=== PATIENT | female | born 1990 | race African-American/Black ===

== ENCOUNTER 2019-08-22 08:27 | Emergency (ER) | payer OTHER, MEDICAID, SELFPAY ==
--- NOTE | ~2019-08-22 | XR_ITS ---
EXAMINATION: XR knee RT 3V DATE: 08/22/2019 09:15 INDICATION: Right knee pain post fall TECHNIQUE: Anteroposterior, oblique and crosstable lateral views of the right knee were obtained COMPARISON: None. FINDINGS: Alignment is normal. No fracture. No joint effusion/layering lipohemarthrosis. Soft tissues are unre markable. IMPRESSION: 1. Normal right knee radiograph. Reviewed, dictated and finalized at location A. 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
--- NOTE | ~2019-08-22 | XR_ITS ---
EXAMINATION: XR knee LT 3V DATE: 08/22/2019 09:14 INDICATION: Medial left knee pain post trampoline injury TECHNIQUE: Anteroposterior, oblique and crosstable lateral views of the left knee were obtained COMPARISON: None. FINDINGS: Alignment is normal. No fracture. No joint effusion/layering lipohemarthrosis. Soft tissues are unre markable. IMPRESSION: 1. Normal left knee radiographs. Reviewed, dictated and finalized at location A. 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
[2019-08-22 08:34] VITALS: BP 111/64; PULSE 85; RESP 16; TEMP 36.9; O2SAT 99
--- NOTE | 2019-08-22 09:24 | ED.LOWEXIN ---
HPI - Extremity Injury (Lower) General Chief Complaint: Extremity Injury, Lower Stated Complaint: bilateral knee pain after fall Time Seen by Provider: 08/22/19 08:58 Source: patient Mode of arrival: ambulatory Limitations: no limitations History of Present Illness HPI Narrative: Patient is a 29-year-old female who presents to emergency department for evaluation of bilateral anterior knee pain [place] [employer] [place] notes that she developed the pain after jumping feeling a pop in the bilateral knees and has since had moderate aching pain patient on arrival is in the room in no distress patient is able to ambulate patient Related Data Home Medications Medication Instructions Recorded Confirmed No Home Medications 08/22/19 08/22/19 Allergies Allergy/AdvReac Type Severity Reaction Status Date / Time No Known Allergies Allergy Unknown Unverified 08/22/19 08:41 Review of Systems Review of Systems: Narrative: CONSTITUTIONAL: Denies fever, chills, or sweats. SKIN: Negative for bruising or swelling MUSCULOSKELETAL: Positive for bilateral knee pain NEUROLOGIC: Denies numbness, or weakness. [facility] Social History Social History (Updated 08/22/19 @ 09:25 by Brooks Toussaint PA-C) Smoking status: Never smoker Gender identity (if verbalized by the patient): Female Exam Narrative: Exam Narrative: GENERAL: Well-appearing, well-nourished, and in no acute distress. HEAD: Normocephalic, atraumatic. EYES: PERRLA and EOMI. ENT: Nares clear, no rhinorrhea or epistaxis. Mucous membranes moist. EXTREMITIES: Normal range of motion. No edema. Tenderness to the bilateral anterior knees no deformities noted SKIN: Warm, dry, no rash. NEURO: No focal deficits. Alert and oriented x3. Neurovascularly intact. Capillary refill less than 2 seconds. PSYCH: Normal mood and affect. Course Course Emergency Course: Patient in the room in no distress aware of case findings treatment plan and diagnosis agreeing to follow-up as directed Vital Signs Vital signs: Vital Signs Temperature 98.4 F 08/22/19 08:34 Pulse Rate 85 08/22/19 08:34 Respiratory Rate 16 08/22/19 08:34 Blood Pressure 111/64 08/22/19 08:34 Pulse Oximetry 99 08/22/19 08:34 Temperature 98.4 F 08/22/19 08:34 Pulse Rate 85 08/22/19 08:34 Respiratory Rate 16 08/22/19 08:34 Blood Pressure 111/64 08/22/19 08:34 Pulse Oximetry 99 08/22/19 08:34 MDM - Extremity Injury (Lower) MDM Narrative Medical decision making narrative: Patients injury or pain is consistent with musculoskeletal etiology. No signs of neurological or vascular compromise on exam. Compartments and tisues are soft without signs of compartment syndrome. Pain is felt appropriate for further evaluation on an outpatient basis. Imaging Data Radiologist's impression: ITS Impressions Knee X-Ray 08/22/19 09:17 IMPRESSION: 1. Normal right knee radiograph. Discharge Plan Discharge Clinical Impression: Acute bilateral knee pain Patient Disposition: Home, Self-Care Condition: Stable Instructions: Antibiotic Form, Arthralgia (ED) Additional Instructions: Limited weight on the affected leg until able to bear weight without pain. Ice and elevate extremity. Pain medication as needed and directed. Follow up with your doctor for further care in the next 7 days. Return if symptoms worsen or concerns Prescriptions: No Action No Home Medications RF: 0 Follow-up/Referrals: PHYSICIAN,GREEN HIDE INSPECTOR [Primary Care Provider] - Ramírez Beckwith MD [Physician] - Stand Alone Forms: Work/School Release IP
== END 2019-08-22 09:43 | disposition home or self-care (01) ==
PROVIDERS: Emergency Provider Emergency Medicine
DX: M25.562 Pain in left knee (principal); M25.561 Pain in right knee
CPT/HCPCS: 73562; 99284

== ENCOUNTER 2020-05-17 11:36 | Emergency (ER) | payer OTHER, SELFPAY ==
[2020-05-17 11:47] VITALS: BP 116/66; PULSE 97; RESP 18; TEMP 37.4; O2SAT 100
--- NOTE | 2020-05-17 11:47 | PC.NURSE ---
in br to obtain ua spec.
--- NOTE | 2020-05-17 12:20 | ED.GENADULT ---
HPI - General Adult General Chief complaint: Urogenital-Female Stated complaint: Vaginal Discomfort Time Seen by Provider: 05/17/20 12:20 Source: patient and RN notes reviewed Mode of arrival: ambulatory Limitations: no limitations History of Present Illness HPI narrative: 30-year-old -[place]er female presents with vaginal irritation with white discharge for 1 day. Erin says discharge is similar to prior yeast infection. No treatment. No significant pelvic pain. No dysuria. Denies fever or chills. No concerns for STDs. No new partners. Sexually active with same partner for the past 8 years. Does not douche. No exacerbating factors. Denies hematuria or vaginal bleeding. Denies being , LMP 04/25/20.? No flank pain. Denies nausea, vomiting, and abdominal pain.? Tolerating liquids well.? Remains active. The patient reports she have not been diagnosed with COVID-19. The patient reports she is not waiting for the results of a COVID-19 lab test. The patient reports she do not have weakness or fatigue. The patient reports she do not have a new or worsening cough or shortness of breath. Denies chest pain. The patient reports she do not have any rhinorrhea, congestion, sore throat, loss of taste, and diarrhea. Denies recent traveling. Denies concerns for COVID-19 or exposures been home with limited outdoor exposure except for essential household needs, work, and return home. At this time, patient is not suspected of having COVID-19. Some parts of this dictation were generated by voice recognition software and may contain typographical and/or grammatical inaccuracies. Related Data Allergies Allergy/AdvReac Type Severity Reaction Status Date / Time No Known Allergies Allergy Unknown Unverified 08/22/19 08:41 Review of Systems Review of Systems: Narrative: CONSTITUTIONAL: Denies fever, chills, sweats. EYES: Denies visual changes, redness, discharge. ENT: Denies rhinorrhea, congestion, sore throat, otalgia. CARDIOVASCULAR: Denies chest pain, palpitations, edema. RESPIRATORY: Denies dyspnea, wheezing, cough. GASTROINTESTINAL: Denies abdominal pain, nausea, vomiting, diarrhea. GENITOURINARY: Denies hematuria, dysuria (burning, frequent, urgency). Complains of vaginal irritation, abnormal discharge. SKIN: Denies rash or itching. MUSCULOSKELETAL: Denies acute back pain, joint pain, or myalgia. NEUROLOGIC: Denies numbness or focal weakness. PSYCHIATRIC: Denies anxiety or depression. All systems reviewed & are unremarkable except as noted in HPI and below. [facility] Past Medical History Medical History (Updated 05/18/20 @ 00:00 by Angelica Damagdi) No significant family history Surgical History Surgical History (Updated 05/17/20 @ 12:31 by SHAWANDA Vang) History of dilation and curettage 2014 Family History Family History (Updated 05/17/20 @ 12:32 by SHAWANDA Vang) Father Diabetes mellitus Mother Asthma Hypertension Social History Social History (Updated 05/17/20 @ 12:34 by SHAWANDA Vang) Smoking status: Never smoker Tobacco type: cigarettes Second hand tobacco smoke exposure: No Alcohol intake: never Substance use: never Living arrangements: with family Occupation/Education: occupation Gender identity (if verbalized by the patient): Female Sexual Orientation (if Verbalized by the Patient): Straight or Heterosexual Comments At time of signature, agree with nurse past medical, surgical, social, and family history.? There is no relevant family history pertinent to the presenting complaint. Exam Narrative: Exam Narrative: GENERAL: This is a well-nourished, well-developed patient, in no apparent distress.? Talks in full sentences and ambulates with steady gait without dyspnea. HEAD: normocephalic, atraumatic. EYES: PERRL. Sclera clear/white. Vision is grossly intact. CARDIOVASCULAR: Regular rate and rhythm without murmurs, gallops, or rubs. RESPIRATORY
--- NOTE | 2020-05-17 12:57 | PC.NURSE ---
1235 upon initial attempt to dc, rx was not in with chart, body recall instructor informed of need for med. to be escribed.
== END 2020-05-17 12:41 | disposition home or self-care (01) ==
PROVIDERS: Emergency Provider Nurse Practitioner Family
DX: N76.0 Acute vaginitis (principal)
CPT/HCPCS: 81003; 87086; 87088; 99213; G0463

== ENCOUNTER 2020-06-25 17:17 | Emergency (ER) | payer OTHER, SELFPAY ==
--- NOTE | 2020-06-25 17:22 | ED.FEMALEGU ---
HPI - Female Genitourinary General Chief complaint: Urogenital-Female Stated complaint: Vaginal odor/discomfort Time Seen by Provider: 06/25/20 17:30 Source: patient and RN notes reviewed Mode of arrival: ambulatory Limitations: no limitations History of Present Illness HPI Narrative: 30-year-old female presents with concern for foul-smelling vaginal discharge for 1 week. Reports symptoms started 7 days ago with foul-smelling discharge, the patient then started her menstrual cycle, and the discharge was present after her menstrual cycle as well. She denies any concern for STIs, no new sex partners. She reports urine frequency, urgency. Denies dysuria, abdominal pain, vomiting dyspareunia. MD elicited complaint: vaginal discharge Related Data Home Medications Medication Instructions Recorded Confirmed No Home Medications 06/25/20 06/25/20 Allergies Allergy/AdvReac Type Severity Reaction Status Date / Time No Known Allergies Allergy Unknown Verified 06/25/20 17:21 Review of Systems Review of Systems: Narrative: CONSTITUTIONAL: Denies malaise, chills, sweats, or fever. GASTROINTESTINAL: Denies abdominal pain, nausea, vomiting, diarrhea, bloody, or mucous stools. GENITOURINARY: Denies dysuria or hematuria. Reports urine frequency, urgency, foul-smelling copious vaginal discharge MUSCULOSKELETAL: Denies myalgia. All systems reviewed & are unremarkable except as noted in HPI and below PMFSH Past Medical History Medical History (Updated 06/25/20 @ 17:41 by Yina Nicole NP) No significant family history Surgical History Surgical History (Updated 05/17/20 @ 12:31 by SHAWANDA Vang) History of dilation and curettage 2014 Family History Family History (Updated 05/17/20 @ 12:32 by SHAWANDA Vang) Father Diabetes mellitus Mother Asthma Hypertension Social History Social History (Updated 05/17/20 @ 12:34 by SHAWANDA Vang) Smoking status: Never smoker Tobacco type: cigarettes Second hand tobacco smoke exposure: No Alcohol intake: never Substance use: never Gender identity (if verbalized by the patient): Female Comments At time of signature, agree with nursing past medical, surgical, social and family history. There is no relevant family history pertinent to the presenting complaint Exam Narrative: Exam Narrative: GENERAL: Well-appearing, well-nourished, and in no acute distress. HEAD: Normocephalic. EYES: PERRLA, conjunctivae clear. NECK: Supple. No lymphadenopathy CHEST: Clear to auscultation. No respiratory distress. HEART: Regular rate and rhythm. SKIN: Warm, dry, no rash. NEURO: Alert and oriented x3. PSYCH: Normal mood and affect : Speculum Exam - Vagina: normal appearance of the vagina and abnormal vaginal discharge (Foul-smelling, [place] in color) Speculum Exam - Cervix: normal appearance of the cervix Course Course Emergency Course: Patient is aware of diagnosis, understands and agrees to treatment plan. Anticipatory guidance given. Patient agrees to follow-up as directed and is aware of reasons to seek care at the emergency department. Portions of this record may have been created with voice recognition software Vital Signs Vital signs: Vital Signs Temperature 99.3 F 06/25/20 17:28 Pulse Rate 86 06/25/20 17:28 Respiratory Rate 16 06/25/20 17:28 Blood Pressure 113/67 06/25/20 17:28 Pulse Oximetry 100 06/25/20 17:28 Temperature 99.3 F 06/25/20 17:28 Pulse Rate 86 06/25/20 17:28 Respiratory Rate 16 06/25/20 17:28 Blood Pressure 113/67 06/25/20 17:28 Pulse Oximetry 100 06/25/20 17:28 Reviewed. MDM - Female Genitourinary MDM Narrative Medical decision making narrative: Exam findings show no acute concerns or changes; patient is non-toxic appearing and is in no distress. Patient is appropriate for outpatient treatment and follow-up. Differential Diagnosis Differential diagnosis: Likely bacterial
[2020-06-25 17:28] VITALS: BP 113/67; PULSE 86; RESP 16; TEMP 37.4; O2SAT 100
== END 2020-06-25 17:50 | disposition home or self-care (01) ==
PROVIDERS: Emergency Provider Nurse Practitioner
DX: N89.8 Other specified noninflammatory disorders of vagina (principal)
CPT/HCPCS: 81003; 99213; 99214; G0463

== ENCOUNTER 2020-11-29 09:33 | Emergency (ER) | payer OTHER, SELFPAY ==
--- NOTE | 2020-11-29 09:40 | ED.GENADULT ---
HPI - General Adult General Chief complaint: Upper Respiratory Infection Stated complaint: Cough,Runny Nose Source: patient Mode of arrival: ambulatory Limitations: no limitations History of Present Illness HPI narrative: 30 y/o AA female. PMH includes: Negative. Presents to [facility] clinic today with CC of nasal congestion, cough, and intermittent dyspnea. Manifestations have been present for the past 1 week. No fever. No FABIAN, sore throat, otalgia. No chest pain, palpitations, edema. No N/V/D. Client denies ill contacts. Non-smoker. She reports subtherapeutic relief with OTC remedies. No additional acute c/o illness relayed upon exam. Related Data Allergies Allergy/AdvReac Type Severity Reaction Status Date / Time No Known Allergies Allergy Unknown Verified 11/29/20 09:36 Review of Systems Review of Systems: Narrative: CONSTITUTIONAL: Denies fever, chills, sweats. EYES: Denies visual changes, redness, discharge. ENT: Positive congestion. No sore throat, otalgia. CARDIOVASCULAR: Denies chest pain, palpitations, edema. RESPIRATORY: Positive cough, intermittent dyspnea. No wheezing. GASTROINTESTINAL: Denies abdominal pain, nausea, vomiting, diarrhea. GENITOURINARY: Denies dysuria, hematuria, abnormal discharge SKIN: Denies rash or itching. MUSCULOSKELETAL: Denies acute back pain, joint pain, or myalgia. NEUROLOGIC: Denies numbness, or focal weakness. PSYCHIATRIC: Denies anxiety or depression. All systems reviewed & are unremarkable except as noted in HPI and below PMFSH Past Medical History Medical History No significant family history Surgical History Surgical History History of dilation and curettage 2014 Family History Family History Father Diabetes mellitus Mother Asthma Hypertension Social History Social History Smoking status: Never smoker Tobacco type: cigarettes Second hand tobacco smoke exposure: No Alcohol intake: never Substance use: never Gender identity (if verbalized by the patient): Female Exam Narrative: Exam Narrative: GENERAL: This is a well-nourished, well-developed patient, in no apparent distress. HEAD: normocephalic, atraumatic. EYES: PERRL. Sclera clear/white. Vision is grossly intact. EARS: External ears normal, auditory canals clear and without drainage, TMs normal without perforation. Hearing grossly intact. NOSE: Positive rhinorrhea. THROAT: Mucous membranes moist, posterior pharynx erythematous, without exudative changes. NECK: Neck supple, non-tender without lymphadenopathy, masses or thyromegaly. CARDIOVASCULAR: Regular rate and rhythm without murmurs, gallops, or rubs. RESPIRATORY: Clear to auscultation. Breath sounds equal bilaterally. No wheezes, rales, or rhonchi. GASTROINTESTINAL: Abdomen soft, non-tender, nondistended. Bowel sounds are active. No hepato-splenomegaly, or palpable masses. No guarding. SKIN: warm, intact with no suspicious lesions or rash, good texture and turgor. NEURO: awake, alert, and oriented to person, place and time. There were no obvious focal neurologic abnormalities. Steady gait EXTREMITIES: Normal range of motion. No edema. No calf tenderness. BACK: Nontender without deformity or crepitance. No flank tenderness. Course Vital Signs Vital signs: Vital Signs Temperature 36.3 C L 11/29/20 09:41 Pulse Rate 83 11/29/20 09:41 Respiratory Rate 16 11/29/20 09:41 Blood Pressure 103/57 L 11/29/20 09:41 Pulse Oximetry 100 11/29/20 09:41 Temperature 36.3 C L 11/29/20 09:41 Pulse Rate 83 11/29/20 09:41 Respiratory Rate 16 11/29/20 09:41 Blood Pressure 103/57 L 11/29/20 09:41 Pulse Oximetry 100 11/29/20 09:41 Medical Decision Making Differential Diagnosis Differential Diagnosis:
[2020-11-29 09:41] VITALS: BP 103/57; PULSE 83; RESP 16; TEMP 36.3; O2SAT 100
== END 2020-11-29 10:02 | disposition home or self-care (01) ==
PROVIDERS: Emergency Provider Nurse Practitioner Adult Health
DX: J01.00 Acute maxillary sinusitis, unspecified (principal)
CPT/HCPCS: 99213; G0463

== ENCOUNTER 2021-01-18 16:59 | Emergency (ER) | payer OTHER, SELFPAY ==
[2021-01-18 17:07] VITALS: BP 105/64; PULSE 88; RESP 16; TEMP 36.9; O2SAT 99
--- NOTE | 2021-01-18 17:17 | ED.GENADULT ---
HPI - General Adult General Chief complaint: Ear Stated complaint: ear ache /headache Time Seen by Provider: 01/18/21 17:17 Source: patient and RN notes reviewed Mode of arrival: ambulatory Limitations: no limitations History of Present Illness HPI narrative: 30-year-old -[place] female presents with complaints of right otalgia, upper respiratory infection symptoms, sore throat, and intermittent headache (not the worst of her life) for the past 2 days. Erin reports increasing RT otalgia and tinnitus over the past 24 hours. No treatment. Denies ear drainage or decreased hearing. Denies injury to ear. No facial swelling. Rhinorrhea and nasal congestion. Denies coughing. No high fevers or chills. Denies nausea, vomiting, and dizziness. LMP 01/06/2021. Remains active. The patient reports she has not been diagnosed with COVID-19. The patient reports she received 2 compropago COVID-19 vaccines. The patient reports she is not waiting for the results of a COVID-19 lab test. The patient reports she does not have weakness, fatigue, myalgia. The patient reports she does not have a new or worsening cough or shortness of breath. The patient reports she does not have any rhinorrhea, congestion, loss of taste, sore throat, and diarrhea. Denies recent traveling. Denies concerns for COVID-19 or exposures. At this time, the patient is not suspected of having COVID-19. Some parts of this dictation were generated by voice recognition software and may contain typographical and/or grammatical inaccuracies. Related Data Allergies Allergy/AdvReac Type Severity Reaction Status Date / Time No Known Allergies Allergy Unknown Verified 11/29/20 09:36 Review of Systems Review of Systems: Narrative: CONSTITUTIONAL: Denies fever, chills, sweats. EYES: Denies visual changes, redness, discharge. ENT: Denies decrease hearing, ear drainage. Complaints of LT otalgia, tinnitus, sore throat, rhinorrhea, congestion. CARDIOVASCULAR: Denies chest pain, palpitations, edema. RESPIRATORY: Denies dyspnea, wheezing, cough. GASTROINTESTINAL: Denies abdominal pain, nausea, vomiting, diarrhea. SKIN: Denies rash or itching. MUSCULOSKELETAL: Denies acute back pain, joint pain, or myalgia. NEUROLOGIC: Denies numbness or focal weakness. Complaints of intermittent FABIAN. PSYCHIATRIC: Denies anxiety or depression. All systems reviewed & are unremarkable except as noted in HPI and below. [facility] Past Medical History Medical History No significant family history Surgical History Surgical History History of dilation and curettage 2014 Family History Family History Father Diabetes mellitus Mother Asthma Hypertension Social History Social History (Updated 01/18/21 @ 17:26 by SHAWANDA Vang) Smoking status: Never smoker Tobacco type: cigarettes Second hand tobacco smoke exposure: No Alcohol intake: never Substance use: never Living arrangements: with family Occupation/Education: occupation Gender identity (if verbalized by the patient): Female Sexual Orientation (if Verbalized by the Patient): Straight or Heterosexual Comments At time of signature, I have reviewed and agree with the nursing past medical, surgical, social, and family history. Please see the nursing chart for further information. There is no relevant family history pertinent to the presenting complaint. Exam Narrative: Exam Narrative: GENERAL: This is a well-nourished, well-developed patient, in no apparent distress. Talks in full sentences and ambulates with steady gait without dyspnea HEAD: Normocephalic, atraumatic. EYES: PERRL. Sclera clear/white. Vision is grossly intact. EARS: Pinna is normal shape and contour. Clear external auditory canals. LT TM pearly alejandre with good cone of light, no e
== END 2021-01-18 17:36 | disposition home or self-care (01) ==
PROVIDERS: Emergency Provider Nurse Practitioner Family
DX: H66.001 Acute suppurative otitis media without spontaneous rupture of ear drum, right ear (principal); J00 Acute nasopharyngitis [common cold]
CPT/HCPCS: 99213; G0463

== ENCOUNTER 2021-02-11 19:56 | Emergency (ER) | payer OTHER, SELFPAY ==
[2021-02-11 20:04] VITALS: BP 121/77; PULSE 102; RESP 16; TEMP 36.7; O2SAT 100
--- NOTE | 2021-02-11 20:13 | ED.FEMALEGU ---
HPI - Female Genitourinary General Chief complaint: Urogenital-Female Stated complaint: Vaginal Discomfort Time Seen by Provider: 02/11/21 20:05 Source: patient and RN notes reviewed Mode of arrival: ambulatory Limitations: no limitations History of Present Illness HPI Narrative: Patient presents today complaining of vaginal itching and burning with white discharge. Discharge started 3 days ago and itching and burning started today. Patient finished a course of antibiotics for otitis media at the end of January and had been prescribed 1 Diflucan pill, which she took 2 days ago once the discharge began. States her symptoms had not improved when she took the 1 pill. MD elicited complaint: vaginal discharge Related Data Allergies Allergy/AdvReac Type Severity Reaction Status Date / Time No Known Allergies Allergy Unknown Verified 11/29/20 09:36 Review of Systems Review of Systems: CONSTITUTIONAL: Denies body aches, fever, chills, or sweats. EYES: Denies visual changes, redness, or discharge. ENT: Denies rhinorrhea, congestion, sore throat, or otalgia. CARDIOVASCULAR: Denies chest pain, palpitations, or edema. RESPIRATORY: Denies cough or dyspnea. GASTROINTESTINAL: Denies abdominal pain, nausea, vomiting, or diarrhea. GENITOURINARY: Denies dysuria or hematuria.+ Vaginal itching and discharge SKIN: Denies rash, itching, or wounds. MUSCULOSKELETAL: Denies back pain, joint pain, or myalgia. NEUROLOGIC: Denies headache, numbness, tingling, or weakness. PSYCH: Denies depression or anxiety. [facility] Past Medical History Medical History No significant family history Surgical History Surgical History History of dilation and curettage 2014 Family History Family History Father Diabetes mellitus Mother Asthma Hypertension Social History Social History Smoking status: Never smoker Tobacco type: cigarettes Second hand tobacco smoke exposure: No Alcohol intake: never Substance use: never Gender identity (if verbalized by the patient): Female Comments At time of signature, I have reviewed and agree with nursing past medical, surgical, social and family history unless otherwise noted. Please see nursing chart for further information. There is no relevant family history pertinent to the presenting complaint Exam Narrative: GENERAL: Well-appearing, well-nourished, and in no acute distress. HEAD: Normocephalic, atraumatic. EYES: EOMI. No redness or drainage. Conjunctivae normal. ENT: Mucous membranes pink and moist. NECK: Normal AROM. CHEST: No respiratory distress. : Slight erythema of the external genitalia with some thick white vaginal discharge. Mild excoriation of the left inner labia as well. MUSCULOSKELETAL: No bony tenderness. EXTREMITIES: Normal range of motion. No edema. SKIN: Warm, dry, no rash. Capillary refill normal. Normal skin turgor. NEURO: No focal deficits. Alert and oriented x3. Gait steady. PSYCH: Normal affect. No signs of depression or anxiety. Course Vital Signs Vital signs: Vital Signs Temperature 98.0 F 02/11/21 20:04 Pulse Rate 102 H 02/11/21 20:04 Respiratory Rate 16 02/11/21 20:04 Blood Pressure 121/77 02/11/21 20:04 Pulse Oximetry 100 02/11/21 20:04 Temperature 98.0 F 02/11/21 20:04 Pulse Rate 102 H 02/11/21 20:04 Respiratory Rate 16 02/11/21 20:04 Blood Pressure 121/77 02/11/21 20:04 Pulse Oximetry 100 02/11/21 20:04 Reviewed. Pt has been instructed to follow up with her PCP regarding her elevated blood pressure today. MDM - Female Genitourinary Differential Diagnosis Differential diagnosis: Likely bacterial vaginosis, vaginitis and other (Vaginal yeast infection) Critical Care Time Cri
== END 2021-02-11 20:17 | disposition home or self-care (01) ==
PROVIDERS: Emergency Provider Nurse Practitioner
DX: B37.3 Candidiasis of vulva and vagina (principal)
CPT/HCPCS: 99213; G0463

== ENCOUNTER 2021-02-13 09:58 | Emergency (ER) | payer OTHER, SELFPAY ==
[2021-02-13 10:06] VITALS: BP 104/76; PULSE 85; RESP 16; TEMP 36.1; O2SAT 100
--- NOTE | 2021-02-13 10:07 | ED.FEMALEGU ---
HPI - Female Genitourinary General Chief complaint: [employer] Stated complaint: Vaginal Discomfort Time Seen by Provider: 02/13/21 10:07 Source: patient and RN notes reviewed Mode of arrival: ambulatory Limitations: no limitations History of Present Illness HPI Narrative: 31-year-old female presents to the [facility] with complaints of vaginal itching. Was seen here 2 days ago, was prescribed Diflucan 200 mg and took the pill yesterday. States his symptoms are not getting any better. Has taken [id number] products for itching. Denies any urinary symptoms, frequency urgency or burning. States that she just feels very irritated in the vaginal area. Patient states she has no concerns for an STD however she is willing to get tested. .LMP 02 February 2021 Related Data Allergies Allergy/AdvReac Type Severity Reaction Status Date / Time No Known Allergies Allergy Unknown Verified 02/13/21 10:19 Review of Systems Review of Systems: All systems reviewed & are unremarkable except as noted in HPI and below Constitutional: Constitutional: Reports no additional constitutional complaints, Denies chills and Denies fatigue Eyes: Eyes: Reports no additional eye complaints ENT: Reports system reviewed and no additional complaints, except as documented Cardiovascular: Cardiovascular: Reports no additional cardiovascular complaints Respiratory: Respiratory: Reports no additional respiratory complaints Gastrointestinal: Gastrointestinal: Reports no additional gastrointestinal complaints, Denies abdominal pain, Denies nausea and Denies vomiting Genitourinary: Genitourinary: Reports as per HPI, Denies abnormal vaginal bleeding, Denies dysuria and Reports vaginal discharge Musculoskeletal: Musculoskeletal: Reports no additional musculoskeletal complaints Integumentary/Breasts: Skin/Breast: Reports system reviewed and no additional complaints, except as docu Neurologic: Reports system reviewed and no additional complaints, except as documented Psychiatric: Psychiatric: Reports no additional psychiatric complaints Allergic/Immunologic: Allergic/Immunologic: Reports no additional allergic/immunologic complaints [facility] Past Medical History Medical History No significant family history Surgical History Surgical History History of dilation and curettage 2014 Family History Family History Father Diabetes mellitus Mother Asthma Hypertension Social History Social History (Reviewed 02/13/21 @ 12:20 by Yina Hernandez Smoking status: Never smoker Tobacco type: cigarettes Second hand tobacco smoke exposure: No Alcohol intake: never Substance use: never Gender identity (if verbalized by the patient): Female Comments At the time of my signature, I reviewed and agree with the nursing past medical, surgical, social, and family history. There is no relevant family history pertinent to the patient complaint. Exam Const: General: no acute distress Nutritional Appearance: well nourished Orientation/consciousness: patient oriented x3 HENMT: Head: normal to inspection Neck: Neck: normal visual inspection, no lymphadenopathy and no meningeal signs Chest: Chest palpation & inspection: normal inspection of the chest Resp: Effort & Inspection: normal respiratory effort and no use of accessory muscles Auscultation: clear to auscultation bilaterally Cardio: Rate: regular rate Rhythm: regular rhythm : General: Yes no CVA tenderness Speculum Exam - Vagina: normal appearance of the vagina and abnormal vaginal discharge white Speculum Exam - Cervix: Cervical os closed, Abnormal cervical discharge present white and nontender Bimanual Exam- Adnexa, other: no tenderness Other: Chaperoned by Miriam ALLEN Back/Spine/Pelvis: Back: no CVA tenderness Skin: General skin exam:
== END 2021-02-13 10:32 | disposition home or self-care (01) ==
PROVIDERS: Emergency Provider Nurse Practitioner
DX: N76.0 Acute vaginitis (principal)
CPT/HCPCS: 87070; 87491; 87591; 87661; 99213; G0463

== ENCOUNTER 2021-06-29 10:21 | Emergency (ER) | payer OTHER, SELFPAY ==
[2021-06-29 10:37] VITALS: BP 89/56; PULSE 99; RESP 16; TEMP 38.2; O2SAT 99
[2021-06-29 10:46] VITALS: BP 89/56; PULSE 99; RESP 16; TEMP 38.2; O2SAT 99
[2021-06-29 11:15] VITALS: BP 132/77; PULSE 87; RESP 16; TEMP 37.2; O2SAT 98
--- NOTE | 2021-06-29 11:22 | ED.URI ---
HPI - URI/Sore Throat General Chief Complaint: Upper Respiratory Infection Stated Complaint: flu like sx Source: patient and RN notes reviewed Limitations: no limitations History of Present Illness HPI Narrative: This is a 31-year-old female presented to urgent care with complaints of a headache, shortness of breath sore throat, chills, this started yesterday. Patient did take a Covid test at work she is unsure whether it is a rapid or PCR. According to her she will get her results back within 24 hours. Patient will get a PCR if she has one at work she will not need to repeat. The patient denies , CP, palpitation, extremity numbness, lightheadedness, dizziness, constipation, diarrhea, chills, or fever. Related Data Home Medications Medication Instructions Recorded Confirmed valacyclovir 500 mg PO DAILY 06/29/21 06/29/21 Allergies Allergy/AdvReac Type Severity Reaction Status Date / Time No Known Allergies Allergy Unknown Verified 06/29/21 11:00 Review of Systems Review of Systems: A 14 organ system Review of Systems was performed and pertinent positives included in the HPI, otherwise remaining ROS is negative. [facility] Past Medical History Medical History No significant family history Surgical History Surgical History History of dilation and curettage 2014 Family History Family History Father Diabetes mellitus Mother Asthma Hypertension Social History Social History Smoking status: Never smoker Tobacco type: cigarettes Second hand tobacco smoke exposure: No Alcohol intake: never Substance use: never Gender identity (if verbalized by the patient): Female Sexual Orientation (if Verbalized by the Patient): Straight or Heterosexual Exam Narrative: GENERAL: This is a well-nourished, well-developed patient, in no apparent distress. HEAD: normocephalic, atraumatic. EYES: PERRL. Sclera clear/white. Vision is grossly intact. EARS: External ears normal, auditory canals clear and without drainage, TMs normal without perforation. Hearing grossly intact. NOSE: External nose normal with no obvious nasal discharge, nares without redness, no rhinorrhea. THROAT: Mucous membranes moist, posterior pharynx clear. NECK: Neck supple, non-tender without lymphadenopathy, masses or thyromegaly. CARDIOVASCULAR: Regular rate and rhythm without murmurs, gallops, or rubs. RESPIRATORY: Clear to auscultation. Breath sounds equal bilaterally. No wheezes, rales, or rhonchi. GASTROINTESTINAL: Abdomen soft, non-tender, nondistended. Bowel sounds are active. No hepato-splenomegaly, or palpable masses. No guarding. SKIN: warm, intact with no suspicious lesions or rash, good texture and turgor. NEURO: awake, alert, and oriented to person, place and time. There were no obvious focal neurologic abnormalities. Steady gait EXTREMITIES: Normal range of motion. No edema. No calf tenderness. Negative Homans sign bilaterally. BACK: Nontender without deformity or crepitance. No flank tenderness. Course Course Emergency Course: Patient will be treated for viral infection for now she will discharged with albuterol, guaifenesin, Tessalon Perles and Flonase. Flu and strep negative Vital Signs Vital signs: Vital Signs Temperature 100.7 F H 06/29/21 10:37 Pulse Rate 99 06/29/21 10:37 Respiratory Rate 16 06/29/21 10:37 Blood Pressure 89/56 L 06/29/21 10:37 Pulse Oximetry 99 06/29/21 10:37 Temperature 99.0 F 06/29/21 11:15 Pulse Rate 87 06/29/21 11:15 Respiratory Rate 16 06/29/21 11:15 Blood Pressure 132/77 06/29/21 11:15 Pulse Oximetry 98 06/29/21 11:15 MDM - URI/Sore Throat Differential Diagnosis Differential diagnosis: Likely upper respiratory infection, sinusitis
== END 2021-06-29 11:30 | disposition home or self-care (01) ==
PROVIDERS: Emergency Provider Nurse Practitioner
DX: B34.9 Viral infection, unspecified (principal)
CPT/HCPCS: 87081; 87804; 87880; 99213; G0463

== ENCOUNTER 2021-07-19 18:34 | Emergency (ER) | payer OTHER, SELFPAY ==
[2021-07-19 18:39] VITALS: BP 121/75; PULSE 93; RESP 18; TEMP 36.4; O2SAT 100
--- NOTE | 2021-07-19 20:27 | ED.GENADULT ---
HPI - General Adult General Chief complaint: Urogenital-Female Stated complaint: yeast infection Time Seen by Provider: 07/19/21 20:21 Source: patient and RN notes reviewed Mode of arrival: ambulatory Limitations: no limitations History of Present Illness HPI narrative: Patient a 31-year-old female who presents with several days duration white discharge concern for yeast infection patient notes history of similar occurrence in the past would also like to have gonorrhea chlamydia testing and treatment she presents nondistressed denies any fever chills nausea vomiting or other complaints and is resting comfortably in the room upon arrival. Patient has not taken anything for symptoms Related Data Home Medications Medication Instructions Recorded Confirmed valacyclovir 500 mg PO DAILY 06/29/21 06/29/21 Allergies Allergy/AdvReac Type Severity Reaction Status Date / Time No Known Allergies Allergy Unknown Verified 06/29/21 11:00 Review of Systems Review of Systems: All systems reviewed & are unremarkable except as noted in HPI and below PMFSH Past Medical History Medical History No significant family history Surgical History Surgical History History of dilation and curettage 2014 Family History Family History Father Diabetes mellitus Mother Asthma Hypertension Social History Social History Smoking status: Never smoker Tobacco type: cigarettes Second hand tobacco smoke exposure: No Alcohol intake: never Substance use: never Gender identity (if verbalized by the patient): Female Sexual Orientation (if Verbalized by the Patient): Straight or Heterosexual Exam Narrative: GENERAL: Well-appearing, well-nourished, and in no acute distress. HEAD: Normocephalic, atraumatic. EYES: PERRLA and EOMI. ENT: Nares clear, no rhinorrhea or epistaxis. Mucous membranes moist. CHEST: Clear to auscultation. No respiratory distress. No wheezes rales or rhonchi HEART: Regular rate and rhythm. No murmur heard. EXTREMITIES: Normal range of motion. No edema. SKIN: Warm, dry, no rash. NEURO: No focal deficits. Alert and oriented x3. Cranial nerves II through XII grossly intact PSYCH: Normal mood and affect. Course Course Emergency Course: Patient in the room nontoxic-appearing nondistressed will be tested and treated for urinary tract infection gonorrhea chlamydia and yeast infection she is afebrile her ABCs and vital signs intact and stable felt appropriate for outpatient reevaluation Vital Signs Vital signs: Vital Signs Temperature 97.6 F 07/19/21 18:39 Pulse Rate 93 07/19/21 18:39 Respiratory Rate 18 07/19/21 18:39 Blood Pressure 121/75 07/19/21 18:39 Pulse Oximetry 100 07/19/21 18:39 Temperature 97.6 F 07/19/21 18:39 Pulse Rate 93 07/19/21 18:39 Respiratory Rate 18 07/19/21 18:39 Blood Pressure 121/75 07/19/21 18:39 Pulse Oximetry 100 07/19/21 18:39 Medical Decision Making MDM Narrative Medical decision making narrative: Patient was tested and treated requested afebrile nontoxic-appearing felt appropriate for outpatient reevaluation given indications for return and follow-up Vital Signs Vital Signs: Vital Signs Temperature 97.6 F 07/19/21 18:39 Pulse Rate 93 07/19/21 18:39 Respiratory Rate 18 07/19/21 18:39 Blood Pressure 121/75 07/19/21 18:39 Pulse Oximetry 100 07/19/21 18:39 Temperature 97.6 F 07/19/21 18:39 Pulse Rate 93 07/19/21 18:39 Respiratory Rate 18 07/19/21 18:39 Blood Pressure 121/75 07/19/21 18:39 Pulse Oximetry 100 07/19/21 18:39 Discharge Plan Discharge Clinical Impression: Vaginitis Patient Disposition: Home, Self-Care Condition: Stable Instructions: Antibioti
[2021-07-19] MEDS: LIDOCAINE HCL 1% LOCAL INJ 20 ML VIAL 2.1 ML XX (20:45)
[2021-07-19] MEDS: cefTRIAXone 1 GM VIAL 0.5 GM IM (20:45)
[2021-07-19 21:58] LABS: Add Urine Microscopic? YES; Appearance Urine Cloudy (Clear); Bilirubin Urine Negative (Negative); Blood Urine 1+ (Negative); Color Urine Yellow (Yellow); Glucose Urine UA Negative (Negative); Ketones Urine Negative (Negative); Leukocyte Esterase Ur Negative LEU/UL (Negative); Mucus Urine Moderate /lpf; Nitrate Urine Negative (Negative); Protein Urine Negative (Negative); Specific Grav Ur 1.029 (1.001-1.035); Squamous Epithelial Cell Urine Many /hpf (Few); WBC Urine 0-3 /hpf
== END 2021-07-19 21:01 | disposition home or self-care (01) ==
PROVIDERS: Emergency Medicine Emergency Medical Services; Emergency Provider Emergency Medicine
DX: N76.0 Acute vaginitis (principal)
CPT/HCPCS: 81001; 87491; 87591; 96372; 99284; J0696

== ENCOUNTER 2021-08-17 16:12 | Outpatient (CLI) | payer OTHER, SELFPAY ==
--- NOTE | ~2021-08-17 | XR_ITS ---
XR chest 2V DATE: 08/17/2021 16:53 INDICATION: Preoperative evaluation for cosmetic surgery TECHNIQUE: PA and lateral views COMPARISON: None FINDINGS: Normal heart size. No hilar or mediastinal enlargement. No pulmonary infiltrate or consolid ation, pleural effusion or pulmonary vascular congestion or pneumothorax. Included skeletal structure s appear normal. IMPRESSION: Negative Reviewed, dictated and finalized at location A. PASTRY CHEF IMPRESSION: Negative
== END 2021-08-17 16:13 | disposition home or self-care (01) ==
LOC: ANHIMG 16:19
DX: Z41.1 Encounter for cosmetic surgery (principal)
CPT/HCPCS: 71046

== ENCOUNTER 2021-08-18 16:49 | Outpatient (CLI) | payer OTHER, SELFPAY ==
--- NOTE | 2021-08-18 | ECG_ITS ---
Measurements Intervals [place] Rate: 79 P: 43 OR: 157 QRS: 35 QRSD: 94 T: 25 QT: 362 QTc: 416 Interpretive Statements SINUS RHYTHM BORDERLINE T WAVE ABNORMALITY- ANTERIOR LEADS BORDERLINE ECG Electronically Signed On 08-18-2021 20:46:01 [employer]IGHT CLAIM INVESTIGATOR by Francisco Patten D.O.
== END 2021-08-18 16:50 | disposition home or self-care (01) ==
LOC: ANHCARD 16:51
DX: Z41.1 Encounter for cosmetic surgery (principal)
CPT/HCPCS: 93005

== ENCOUNTER 2022-09-03 10:13 | Emergency (ER) | payer OTHER, SELFPAY ==
[2022-09-03 10:23] VITALS: BP 115/77; PULSE 78; RESP 16; TEMP 36.9; O2SAT 100
--- NOTE | 2022-09-03 10:24 | ED.EYEPROB ---
HPI - Eye Problem General Chief complaint: Eye Problems Stated complaint: Right Eye Irritation Time Seen by Provider: 09/03/22 10:24 Source: patient, RN notes reviewed and old records reviewed Mode of arrival: ambulatory Limitations: no limitations History of Present Illness HPI Narrative: 32-year-old female presents to the [facility] with right eye irritation. Had eyelashes placed on Saturday, 2 days ago, symptoms developed while having the eyelashes placed. Was told that it was normal. Had redness and irritation when she woke up Saturday, woke up this morning with the eye crusted closed. Denies any foreign body feeling Onset (ago): day(s) (2) Related Data Allergies Allergy/AdvReac Type Severity Reaction Status Date / Time No Known Allergies Allergy Unknown Verified 06/29/21 11:00 Review of Systems Review of Systems: All systems reviewed & are unremarkable except as noted in HPI and below Constitutional: Constitutional: Reports no additional constitutional complaints Eyes: Eyes: Reports as per HPI ENT: Reports system reviewed and no additional complaints, except as documented Cardiovascular: Cardiovascular: Reports no additional cardiovascular complaints, Denies chest pain and Denies dyspnea Respiratory: Respiratory: Reports no additional respiratory complaints, Denies chest congestion, Denies cough and Denies dyspnea Gastrointestinal: Gastrointestinal: Reports no additional gastrointestinal complaints, Denies abdominal pain, Denies nausea and Denies vomiting Musculoskeletal: Musculoskeletal: Reports no additional musculoskeletal complaints Integumentary/Breasts: Skin/Breast: Reports system reviewed and no additional complaints, except as docu Neurologic: Reports system reviewed and no additional complaints, except as documented Psychiatric: Psychiatric: Reports no additional psychiatric complaints Allergic/Immunologic: Allergic/Immunologic: Reports no additional allergic/immunologic complaints [facility] Past Medical History Medical History No significant family history Surgical History Surgical History History of dilation and curettage 2014 Family History Family History Father Diabetes mellitus Mother Asthma Hypertension Social History Social History Smoking status: Never smoker Tobacco type: cigarettes Second hand tobacco smoke exposure: No Alcohol intake: never Substance use: never Living arrangements: with family Occupation/Education: occupation Gender identity (if verbalized by the patient): Female Sexual Orientation (if Verbalized by the Patient): Straight or Heterosexual Comments At the time of my signature, I reviewed and agree with the nursing past medical, surgical, social, and family history. There is no relevant family history pertinent to the patient complaint. Exam Const: General: cooperative, healthy appearing, comfortable, no acute distress, well developed, alert and well nourished Nutritional Appearance: well nourished Orientation/consciousness: patient oriented x3 Limitations: no limitations HENMT: Head: normal to inspection Ears: hearing grossly normal bilaterally and external ears normal Face/Nose/Sinus: Normal external nose present, Normal nares present, Normal nasal mucous membranes and turbinates present and normal facial exam Face and sinus: normal facial exam Mouth: Yes Normal oral and palatal mucosa present, Yes lip normal and Yes moist mucous membranes Throat: posterior oropharynx normal and uvula midline Eyes: General: appearance normal, both eyes and all related structures Alignment and Position: alignment normal Periorbital: periorbital findings normal Conjunctivae: conjunctival abnormality right conjunctival injection localized; w
== END 2022-09-03 10:37 | disposition home or self-care (01) ==
PROVIDERS: Emergency Provider Nurse Practitioner; PCP Physician Assistant
DX: H10.31 Unspecified acute conjunctivitis, right eye (principal)
CPT/HCPCS: 99213; G0463

== ENCOUNTER 2022-11-17 08:13 | Emergency (ER) | payer OTHER, SELFPAY ==
[2022-11-17 08:22] VITALS: BP 100/64; PULSE 91; RESP 16; TEMP 36.9; O2SAT 96
--- NOTE | 2022-11-17 08:24 | ED.FEMALEGU ---
HPI - Female Genitourinary General Chief complaint: Urogenital-Female Stated complaint: possible yeast infection Time Seen by Provider: 11/17/22 08:25 Source: patient and RN notes reviewed Mode of arrival: ambulatory Limitations: no limitations History of Present Illness HPI Narrative: 32-year-old female presented for complaint of vaginal itching for about 2 days. She endorses thick white discharge. Also reports urinary frequency. States symptoms are similar to her previous yeast infections, reports last one has been almost a year. She endorses change to detergent and panty liners. She denies abdominal pain, flank pain, nausea, vomiting, hematuria, dysuria, dyspareunia, fevers or chills. Denies change in sexual partners, or concern for STD. She no longer attempts [id number] anti yeast cream stating it does not work for her. Scheduled with OBgyn in 2 days. Related Data Allergies Allergy/AdvReac Type Severity Reaction Status Date / Time No Known Allergies Allergy Unknown Verified 11/17/22 08:18 Review of Systems Review of Systems: CONSTITUTIONAL: Denies body aches, fever, chills, or sweats. CARDIOVASCULAR: Denies chest pain, palpitations, or edema. RESPIRATORY: Denies cough or dyspnea. GASTROINTESTINAL: Denies abdominal pain, nausea, vomiting, or diarrhea. GENITOURINARY: Reports frequency, itching, discharge; dysuria, urgency, hematuria, flank pain SKIN: Denies rash, or wounds. MUSCULOSKELETAL: Denies back pain or myalgia. [facility] Past Medical History Medical History No significant family history Surgical History Surgical History History of dilation and curettage 2014 Family History Family History Father Diabetes mellitus Mother Asthma Hypertension Social History Social History Smoking status: Never smoker Tobacco type: cigarettes Second hand tobacco smoke exposure: No Alcohol intake: never Substance use: never Living arrangements: with family Occupation/Education: occupation Gender identity (if verbalized by the patient): Female Sexual Orientation (if Verbalized by the Patient): Straight or Heterosexual Comments At time of signature, I have reviewed and agree with nursing past medical, surgical, social and family history unless otherwise noted. Please see nursing chart for further information. There is no relevant family history pertinent to the presenting complaint Exam Narrative: GENERAL: Well-appearing and in no acute distress. HEAD: Normocephalic EYES: EOMI. . ENT: Mucous membranes pink and moist. NECK: Normal AROM. Supple. CHEST: No respiratory distress. Clear to auscultation. HEART: Regular rate and rhythm. ABDOMEN: Soft, nontender, nondistended, normal active bowel sounds. No CVA tenderness : deferred refused pt pt SKIN: Warm, dry, no rash. NEURO: No focal deficits. Alert and oriented x3. Gait steady. PSYCH: Normal affect. Course Course Emergency Course: Patient is aware of diagnosis, understands and agrees to treatment plan. Anticipatory guidance given. Patient agrees to follow-up as directed and is aware of reasons to seek care at the emergency department. Portions of this record may have been created with voice recognition software Level of Care: Express Care Visit Vital Signs Vital signs: Vital Signs Temperature 98.5 F 11/17/22 08:22 Pulse Rate 91 11/17/22 08:22 Respiratory Rate 16 11/17/22 08:22 Blood Pressure 100/64 11/17/22 08:22 Pulse Oximetry 96 11/17/22 08:22 Oxygen Delivery Room Air 11/17/22 08:22 Temperature 98.5 F 11/17/22 08:22 Pulse Rate 91 11/17/22 08:22 Respiratory Rate 16 11/17/22 08:22 Blood Pressure 100/64 11/17/22 08:22 Pulse Oximetry 96 11/17/22 08:
== END 2022-11-17 08:53 | disposition home or self-care (01) ==
PROVIDERS: Emergency Provider Nurse Practitioner Family; PCP Physician Assistant
DX: N89.8 Other specified noninflammatory disorders of vagina (principal)
CPT/HCPCS: 81003; 87086; 87088; 99213; G0463

== ENCOUNTER 2023-07-20 10:19 | Emergency (ER) | payer OTHER, SELFPAY ==
[2023-07-20 10:39] VITALS: BP 119/76; PULSE 99; RESP 16; TEMP 38.4; O2SAT 99
--- NOTE | 2023-07-20 11:23 | ED.URI ---
HPI - URI/Sore Throat General Chief Complaint: Upper Respiratory Infection Stated Complaint: not feeling well Time Seen by Provider: 07/20/23 11:23 Source: patient and RN notes reviewed Mode of arrival: ambulatory Limitations: no limitations History of Present Illness HPI Narrative: 33-year-old female presented for complaint headache, body aches, and fever. Onset 2 days. Denies sore throat, shortness of breath, wheezing, nausea, vomiting, diarrhea. Taking TheraFlu for symptoms. 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 MD elicited complaint: cough Related Data Home Medications Medication Instructions Recorded Confirmed No Home Medications 07/20/23 07/20/23 Allergies Allergy/AdvReac Type Severity Reaction Status Date / Time No Known Allergies Allergy Unknown Verified 11/17/22 08:18 Review of Systems Review of Systems: CONSTITUTIONAL: Endorses malaise, chills, sweats, fever EYES: Denies visual changes, redness, or discharge ENT: Reports rhinorrhea, denies sinus pain, otalgia, sore throat CARDIOVASCULAR: Denies chest pain, palpitations, edema RESPIRATORY: Denies dyspnea GASTROINTESTINAL: Denies abdominal pain, nausea, vomiting, diarrhea SKIN: Denies rash or itching MUSCULOSKELETAL: Endorses myalgia NEUROLOGIC: endorses headache PMFSH Past Medical History Medical History No significant family history Surgical History Surgical History History of dilation and curettage 2014 Family History Family History Father Diabetes mellitus Mother Asthma Hypertension Social History Social History Smoking status: Never smoker Tobacco type: cigarettes Second hand tobacco smoke exposure: No Alcohol intake: never Substance use: never Living arrangements: with family Occupation/Education: occupation Gender identity (if verbalized by the patient): Female Sexual Orientation (if Verbalized by the Patient): Straight or Heterosexual Exam Narrative: GENERAL: Ill-appearing, nontoxic EYES: PERRLA, conjunctivae clear ENT: Mucous membranes moist. TMs pearly [place] with dull light reflex bilaterally; no tragal tenderness. Oropharynx not erythematous without lesions or exudate, tonsils 3+ no drooling, no hoarseness, no trismus, uvula midline. No tripod positioning, muffled voice, soft palate or pharyngeal wall bulging NECK: Supple. No lymphadenopathy CHEST: Clear to auscultation, breath sounds equal. No wheezing, rhonchi, rales, or stridor. No respiratory distress, speaks in full sentences. HEART: Regular rate and rhythm. No murmur heard. SKIN: Warm, dry, no rash. NEURO: Alert and oriented x3. PSYCH: Normal mood and affect Course Course Emergency Course: Patient is aware of diagnosis, understands and agrees to treatment plan. Anticipatory guidance given. Patient agrees to follow-up as directed and is aware of reasons to seek care at the emergency department. Portions of this record may have been created with voice recognition software Level of Care: Express Care Visit Vital Signs Vital signs: Vital Signs Temperature 101.1 F H 07/20/23 10:39 Pulse Rate 99 07/20/23 10:39 Respiratory Rate 16 07/20/23 10:39 Blood Pressure 119/76 07/20/23 10:39 Pulse Oximetry 99 07/20/23 10:39 Oxygen Delivery Room Air 07/20/23 10:39 Temperature 101.1 F H 07/20/23 10:39 Pulse Rate 99 07/20/23 10:39 Respiratory Rate 16 07/20/23 10:39 Blood Pressure 119/76 07/20/23 10:39 Pulse Oximetry 99 07/20/23 10:39 Oxygen Delivery Room Air 07/20/23 10:39 reviewed MDM - URI/Sore Throat MDM Narrative Medical decision making narrative: Negative flu and COVID. Results reviewed with patient. Discussed physical exam findings. Advised support
== END 2023-07-20 11:36 | disposition home or self-care (01) ==
PROVIDERS: Emergency Provider Nurse Practitioner Family; PCP Physician Assistant
DX: B34.9 Viral infection, unspecified (principal); Z20.822 Contact with and (suspected) exposure to COVID-19
CPT/HCPCS: 87426; 87804; 99213; G0463